=== PATIENT | female | born 1980 | race Caucasian/White ===

== ENCOUNTER 2017-09-08 12:38 | Day surgery (SDC) | payer OTHER ==
[2017-09-08 12:59] VITALS: BMI 43.4
[2017-09-08] MEDS ORDERED: LIDOCAINE HCL 2% (20ML MULTI-DOSE VIAL) NR ONE (13:42)
[2017-09-08] MEDS ORDERED: BUPIVACAINE HCL/PF 2.5 MG/ML - 30 ML VIAL IJ ONE (13:42)
[2017-09-08] MEDS ORDERED: MIDAZOLAM HCL 2 MG/2 ML SINGLE DOSE VIAL ONE (14:46)
[2017-09-08] MEDS ORDERED: LIDOCAINE HCL/PF 2% SDV 5ML VIAL ONE (14:46)
[2017-09-08] MEDS ORDERED: PROPOFOL 20 ML ONE ×2 (14:46→15:11)
[2017-09-08] MEDS ORDERED: ceFAZolin SODIUM 1 GM VIAL ONE (15:23)
[2017-09-08] MEDS ORDERED: DEXAMETHASONE SOD PHOSPHATE 4 MG/1 ML VIAL ONE (15:24)
[2017-09-08] MEDS ORDERED: ONDANSETRON 4 MG/2 ML VIAL ONE ×2 (15:24→16:07)
[2017-09-08] MEDS ORDERED: ONDANSETRON 4 MG/2 ML VIAL IVPUSH PRN (16:24)
[2017-09-08] MEDS ORDERED: oxyCODONE HCL 5 MG TABLET PO PRN ×2 (16:24)
[2017-09-08] MEDS ORDERED: LACTATED RINGERS SOLUTION 1,000 ML IV SCH (16:30)
[2017-09-08 16:47] VITALS: TEMP 98.3
[2017-09-08] MEDS ORDERED: traMADol HCL 50 MG TABLET ONE (17:24)
[2017-09-08 18:27] VITALS: PULSE 70
[2017-09-08 18:32] VITALS: BP 122/74
--- NOTE | 2017-09-13 17:41 | OP ---
DATE OF OPERATION: 09/08/2017 PREOPERATIVE DIAGNOSIS: Right thumb metacarpal fracture. POSTOPERATIVE DIAGNOSIS: Right thumb metacarpal fracture. OPERATIVE PROCEDURE: Closed reduction brachial cutaneous pinning of right thumb, metacarpal fracture. SURGEON: Josephine Moreno M.D. COMPUTER OPERATIONS MANAGER: Alexander Vásquez ANESTHESIA: General. COMPLICATIONS: None. ESTIMATED BLOOD LOSS: Minimal. INDICATION FOR PROCEDURE: The patient presented with the above findings, indicated for operative treatment. Risks, benefits, and alternatives were discussed with patient at length, proper informed consent was obtained. PROCEDURE: After proper identification of the patient and correct operative site, patient was brought to the operating room and placed on the operating room table, all bony prominences well padded. General anesthesia was given. Timeout procedure was performed. Right upper extremity was prepped and draped in the usual sterile fashion. Under live fluoroscopy, the fracture was reduced, and then percutaneous K-wires were placed across the fracture site, achieving bicortical purchase with satisfactory alignment of the fracture. Cut short and bent outside of the skin. X-rays were taken in planes to confirm proper placement, sizing of all hardware as well as reduction of fracture. Area was irrigated and dressed, and a thumb was placed. Patient was reversed from anesthesia and brought to recovery in stable condition. She tolerated procedure well. Andi Jovel, the glass ribbon machine operator assistant, was integral throughout the procedure. This procedure could not have been performed without a skilled operative glass ribbon machine operator assistant. He was especially necessary during the placement of hardware portion of the case, where I was needed to hold the fracture reduced, and I needed a skilled glass ribbon machine operator assistant in order to place the K-wires while the fracture was held reduced by me. This could not have been done by any other member of the operating room team. JOSEPHINE MORENO M.D. FOREST/[id number]
== END 2017-09-08 17:50 | disposition home or self-care (01) ==
LOC: FASU 12:38
PROVIDERS: ATTEND Orthopaedic Surgery Hand Surgery
PROC: 0PSP3ZZ Reposition Right Metacarpal, Percutaneous Approach (ICD-10-PCS; principal; 2017-09-08 14:17)
DX: S62.231A Other displaced fracture of base of first metacarpal bone, right hand, initial encounter for closed fracture (principal); X58.XXXA Exposure to other specified factors, initial encounter; Y93.9 Activity, unspecified; Y92.9 Unspecified place or not applicable
CPT/HCPCS: 73130-TC-RT; 84703; 94760